=== PATIENT | male | born 1945 | race Caucasian/White ===

== ENCOUNTER → 2023-09-26 07:33 | Outpatient (REF) | payer MEDICARE, OTHER, SELFPAY | LOC: RCS 07:33 | PROVIDERS: ATTENDING PHYSICIAN Internal Medicine | DX: R09.89 Other specified symptoms and signs involving the circulatory and respiratory systems (principal); I35.0 Nonrheumatic aortic (valve) stenosis | CPT/HCPCS: 93005; 93306; 93880 ==

== ENCOUNTER → 2024-04-02 08:06 | Outpatient (REF) | payer MEDICARE, OTHER, SELFPAY | LOC: RCS 08:06 | PROVIDERS: ATTENDING PHYSICIAN Internal Medicine; FAMILY PHYSICIAN Internal Medicine | DX: I35.0 Nonrheumatic aortic (valve) stenosis (principal); I65.23 Occlusion and stenosis of bilateral carotid arteries; I10 Essential (primary) hypertension; I35.1 Nonrheumatic aortic (valve) insufficiency | CPT/HCPCS: 93306 ==

== ENCOUNTER 2024-05-03 07:29 | Day surgery (SDC) | payer MEDICARE, OTHER, SELFPAY ==
[2024-05-03] VITALS (11 sets, daily range): BP systolic 115–146; BP diastolic 56–71
[2024-05-03] MEDS: LOW STRENGTH ASPIRIN 81 MG PO (08:47)
[2024-05-03] MEDS: NSS 1000 IV (10:03)
--- NOTE | 2024-05-03 11:44 | PTCARENOTE ---
Valerie DEVINE at pt bedside speaking to pt about TAVR information.
--- NOTE | 2024-05-03 12:56 | CONSULT.STRU ---
Consultation
-
Date/Time Consultation Requested: 05/03/2024
Date/Time Consultation Performed: 05/03/2024
Requesting Provider: Dr. Irma Call
Performing Provider: NILSON Cruz
Reason for Consultation: Severe Aortic Stenosis/ TAVR evaluation
Patient History
Physicians
Family Physician: Nick Norman
Outpatient Physiology Teacher: Dr. Chowdary
Primary Physiology Teacher: Dr. Chowdary
History of Present Illness
Patient is a very pleasant 78yo male who underwent cardiac catheterization today as part of the evaluation of his severe aortic stenosis. He denies AVILA, palpitations, chest pain, orthopnea, PND or peripheral edema. He has noted increasing fatigue
that has gotten progressively more obvious over the last 18 months. He states he really tries to remain active and averages 10,000 steps a day. His echocardiogram on 04/02/2024 was notable for LVEF 60-65%, Severe with PG/M/52, MERNA: 0.9,
trace AI, trace MR, trace TR. Cardiac cath with non-occlusive CAD.
Reviewed the pathophysiology of aortic stenosis with the patient. Explained the treatment options of SAVR and TAVR. Explained the TAVR evaluation process including follow up BMP, CT TAVR scan, CT surgery consult and Heart Team discussion. Provided
with script for BMP next week, script and appointment for CT TAVR, Consult appointment with Dr. Yang and a copy of the TAVR education booklet with contact information. Allowed for and answered questions.
Past Medical History
Past Medical History: BPH, GERD (mild), HTN, Hypercholesterolemia, DEVIN (no CPAP), Psychiatric (PTSD-[place] Vet), Valvular Disease (mild MR, severe , trace AI, trace TR) and Other (arthritis, diverticulitis)
Past Surgical History
Past Surgical History: Other (hernia repair as a child, right rotator cuff repair, right shoulder replacement, Achilles tendon repair)
Dental History
Dentist has retired, not seen in >1 year
Family History
Mother: at Age (96yo)
Father: at Age (61yo, CVA/[place])
Social History
Alcohol: Occasional
Drug: None
Tobacco: Non-Smoker
Personal:
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
Employment: Retired (pharmacist)
Allergies
Allergy/AdvReac Type Severity Reaction Status Date / Time
carisoprodol [From Soma] Allergy Rash Verified 05/03/24 08:09
Home Medications
�Medication �Instructions �Recorded �Confirmed �Type
doxazosin 4 mg tablet 4 mg PO QPM 06/25/19 05/03/24 History
ibuprofen 600 mg tablet 600 mg PO Q6HPRN PRN pain 06/25/19 05/03/24 History
lorazepam 0.5 mg tablet 0.5 mg PO HS 06/25/19 05/03/24 History
magnesium 250 mg tablet 250 mg PO QPM 06/25/19 05/03/24 History
aspirin 81 mg tablet,delayed 81 mg PO QPM 05/03/24 05/03/24 History
release
losartan 100 mg tablet 100 mg PO QPM 05/03/24 05/03/24 History
metoprolol succinate 25 mg 25 mg PO QPM 05/03/24 05/03/24 History
tablet,extended release 24 hr
multivitamin 1 tab PO QPM 05/03/24 05/03/24 History
rosuvastatin 10 mg tablet 10 mg PO DAILY #90 tabs 05/03/24 Rx
STS%
STS %: 0.955%
Review of Systems
-
History Source: Patient
General: Reports Fatigue; Denies Weight Loss or Sleep Disturbance
HEENT: Reports No Symptoms
Respiratory: Reports No Symptoms; Denies PND
Cardiac: Reports No Symptoms; Denies Chest Pain, Palpitations or Edema
Abdomen/GI: Reports Reflux (Mild); Denies Abdominal Pain, Nausea, Vomiting or Diarrhea
: Reports Frequency (d/t BPH)
Musculoskeletal: Reports Joint Pain (arthritis)
Skin: Reports No Symptoms
Neurological: Reports No Symptoms; Denies CVA, TIA, Headaches or Syncope
Vascular: Reports No Symptoms
Physical Exam
Vital Signs
Temp 97.9 F 05/03/24 08:21
Temp route: Oral 05/03/24 08:20
Pulse 61 05/03/24 12:33
Blood pressure 116/70 05/03/24 12:34
Blood pressure extremity used: Left upper arm 05/03/24 09:51
Position: Sitting 05/03/24 09:51
MAP (cuff-Sharath Monitor) 85 05/03/24 12:34
SaO2 96 05/03/24 12:33
Oxygen Mode of Delivery Room air 05/03/24 12:00
Can the patient verbally communicate their pain? Yes 05/03/24 12:30
Labs
04/17/2024:
H/H: 14.6/42.2
WBC: 5.1
Platelets: [id number]
BUN/Creat: 13/0.82
GFR: 90
Diagnostic Studies
04/02/2024 Echocardiogram:
CONCLUSIONS
Normal biventricular size and systolic function without regional wall motion
abnormality. LVEF 60 to 65%.
Stage II diastolic dysfunction suggestive of abnormal relaxation and increased
filling pressures.
Severe aortic stenosis. Peak/mean gradient 86/52 mmHg, MERNA 0.9 cm2, DVI 0.24.
Estimated PASP 32 mmHg.
Compared to prior echocardiogram on 09/26/2023, aortic valve gradients are
slightly higher but MERNA and DVI are stable, suggesting that higher gradients
are in the setting of increased flow.
Indications:
Nonrheumatic aortic valve stenosis; Carotid atherosclerosis, bilateral; HTN
Rhythm: Sinus
Portable Study: No
Technical Quality: Fair
Contrast: None
BP: 150 / 72
PROCEDURE
A complete Transthoracic Echocardiogram was performed utilizing two-dimensional
evaluation with color flow and spectral Doppler analysis.
FINDINGS
Left Ventricle
Normal left ventricular size, wall thickness and systolic function. No regional
wall motion abnormalities are seen. LV ejection fraction is 60-65% by Coleman's
method of discs. Stage II diastolic dysfunction suggestive of abnormal
relaxation and increased filling pressures.
Right Ventricle
Normal right ventricular size and function.
Left Atrium
Mildly dilated left atrium.
Right Atrium
Normal right atrium.
Mitral Valve
Thickened mitral valve leaflets. Mitral annular calcification. Mild mitral
regurgitation.
Aortic Valve
Trileaflet, heavily calcified aortic valve. Severe aortic stenosis. The peak
gradient across the valve is 86 mmHg with a mean of 52 mmHg. Using a LVOT
diameter of 2.2 cm, the MERNA is 0.9 cm sq. DVI 0.24. Trace aortic regurgitation.
Tricuspid Valve
Tricuspid valve opens normally. Trace tricuspid regurgitation. Estimated
pulmonary artery pressure of 32 mmHg assuming a right atrial pressure of 3
mmHg.
Pulmonic Valve
Structurally normal pulmonic valve. Trace pulmonic regurgitation.
Pericardium\\Pleura
Normal pericardium without effusion.
Aorta
The aortic root is of normal size. Normal ascending aorta.
Other Finding
The IVC was not well visualized. Interatrial septum is intact with no evidence
of shunting by color flow Doppler.
MEASUREMENTS (Male / Female) Normal Values
2D ECHO
LV Diastolic Diameter PLAX 5.5 cm 4.2 - 5.9 / 3.9 - 5.3 cm
LV Systolic Diameter PLAX 3.5 cm
IVS Diastolic Thickness 1.0 cm 0.6 - 1.0 / 0.6 - 0.9 cm
LVPW Diastolic Thickness 1.0 cm 0.6 - 1.0 / 0.6 - 0.9 cm
LV Relative Wall Thickness 0.4
LVOT Diameter 2.2 cm
LV Ejection Fraction MOD BP 64.4 % >= 55 %
LV Stroke Volume MOD BP 67.0 cm3
LV Stroke Volume MOD 4C 80.0 cm3
LV Stroke Volume 4C AL 89.9 cm3
LV Stroke Volume MOD 2C 59.0 cm3
LV Stroke Volume 2C AL 64.1 cm3
LA Area 4C View 23.6 cm2 <= 20 cm2
LA Length 4C 5.8 cm
LA Volume 79.0 cm3 18 - 58 / 22 - 52 cm3
Ascending Aorta Diameter 3.7 cm
M-MODE
Aortic Root Diameter MM 3.9 cm
LA Systolic Diameter MM 4.6 cm
LA Ao Ratio MM 1.2
DOPPLER
AV Peak Velocity 463.0 cm/s
AV Peak Gradient 85.7 mmHg
AV Mean Gradient 52.0 mmHg
AV Velocity Time Integral 120.3 cm
LVOT Peak Velocity 107.0 cm/s
LVOT Peak Gradient 4.6 mmHg
LVOT Velocity Time Integral 28.9 cm
LVOT Stroke Volume 109.9 cm3
LVOT Stroke Volume Index 50.1 ml/m2 empty
AV Area Cont Eq vti 0.9 cm2
AV Area Cont Eq pk 0.9 cm2
Mitral E Point Velocity 85.9 cm/s
Mitral A Point Velocity 114.0 cm/s
Mitral E to A Ratio 0.8
LV E' Lateral Velocity 5.9 cm/s
Mitral E to LV E' Lateral Ratio 14.7
LV E' Septal Velocity 5.1 cm/s
Mitral E to LV E' Septal Ratio 16.9
TR Peak Velocity 254.0 cm/s
TR Peak Gradient 25.8 mmHg
Exam
General: Well Developed, Well Nourished, No Apparent Distress and Comfortable
HEENT: Normocephalic, Moist Mucous Membranes, PERRLA and EOMI
Neck: Trachea Midline
Respiratory: Clear; Negative Wheezes, Crackles, Rhonchi or Accessory Muscle Use
Cardiac: S1/S2, Regular Rhythm and Murmur (Grade III/ systolic murmur)
GI: Soft, Non Tender, Non Distended and Normal Bowel Sounds
Rectal: Deferred by Provider
Skin: Warm and Dry
Neuro: AO x 3, No Motor Deficits and Nonfocal/Grossly Intact
Extremities: Pulses (+2 palpable pedal pulses bilaterally); Negative Lower Level Edema
Lymph: No Lymphadenopathy
Psych: Calm
Assessment / Plan
-
Procedure Type:�Isolated AVR
PERIOPERATIVE OUTCOME ESTIMATE %
Operative Mortality 0.955%
Morbidity & Mortality 5.82%
Stroke 0.779%
Renal Failure 0.847%
Reoperation 3.14%
Prolonged Ventilation 2%
Deep Sternal Wound Infection 0.057%
Long Hospital Stay (>14 days) 1.94%
Short Hospital Stay (<6 days)* 60.2%
Assessment: Pleasant, relatively healthy and active 78yo male with severe, symptomatic aortic stenosis with progressive fatigue over the last 18 months.
Plan: Evaluate for TAVR vs SAVR
- follow up BMP on 05/09 or 05/10 at [facility]
- CT TAVR scan 05/17/2024 0930
- CT surgery consult with Dr. Yang 05/28/2024
- Dental clearance- has not seen dentist in > 1 year
- Heart team discussion
Data Reviewed
-
EKG: Report Reviewed by me (NSR, no conduction delays)
Formulation Technician: Discussed with Physician
Echo: Report Reviewed by me and Discussed with Physician
Labs: Labs Reviewed by me
Old Records: Reviewed (Cardiology consult notes)
Total Time Spent with Patient (in minutes): 25
--- NOTE | 2024-05-03 17:48 | ITS.CL.PN ---
Historiography Teacher - Procedure Note
Procedure
Procedure Note:
CARDIAC CATHETERIZATION REPORT
Date of Procedure: 05/03/2024
Referring: Dr. Chirag Chowdary MD, PhD
INDICATION: severe aortic stenosis
PROCEDURE: coronary angiography
ACCESS: 6 Citizen [place] right radial artery (TR band)
CATHETERS:
1. 6 [place] [id number]
2. 6 [place] JR4
CORONARY ANGIOGRAPHY
LM: normal, no disease
LAD: large vessel giving rise to two medium caliber diagonal branches. There are mild luminal irregularities.
LCx: large vessel giving rise to a single very large OM. There is a 20% stenosis at a proximal bend and otherwise trivial luminal irregularities.
RCA: large dominant vessel giving rise to a medium caliber RPDA and medium sized RPL system. There are trivial luminal irregularities.
RADIATION:
Radiation (mGy): 463
DAP (cm2.Gy): 34
Fluoroscopy time (minutes): 4.3
CONCLUSIONS
1. Non-obstructive coronary artery disease in a right dominant system.
RECOMMENDATIONS:
1. Expectant management after cardiac catheterization via right radial approach.
2. TAVR workup.
Copy to: Dr. Chirag Chowdary MD, PhD (cardiology); Dr. Nick Norman DO (PCP)
Signed: Zac Call MD, PhD
== END 2024-05-03 12:45 | disposition home or self-care (01) ==
LOC: CATH 07:29
PROVIDERS: ATTENDING PHYSICIAN Student in an Organized Health Care Education/Training Program; FAMILY PHYSICIAN Internal Medicine; OTHER PHYSICIAN Internal Medicine
DX: I35.0 Nonrheumatic aortic (valve) stenosis (principal); I25.10 Atherosclerotic heart disease of native coronary artery without angina pectoris; I10 Essential (primary) hypertension; E78.00 Pure hypercholesterolemia, unspecified; K21.9 Gastro-esophageal reflux disease without esophagitis; N40.0 Benign prostatic hyperplasia without lower urinary tract symptoms; G47.33 Obstructive sleep apnea (adult) (pediatric); Z82.3 Family history of stroke; Z79.82 Long term (current) use of aspirin
CPT/HCPCS: 93454; C1894; Q9967

== ENCOUNTER → 2024-05-17 09:12 | Outpatient (REF) | payer MEDICARE, OTHER, SELFPAY | LOC: RAD 09:12 | PROVIDERS: ATTENDING PHYSICIAN Nurse Practitioner Acute Care; FAMILY PHYSICIAN Internal Medicine | DX: I35.0 Nonrheumatic aortic (valve) stenosis (principal) | CPT/HCPCS: 74174; 75572; Q9967 ==

== ENCOUNTER 2024-06-27 06:24 | Inpatient (IN) | payer MEDICARE, OTHER, SELFPAY ==
[2024-06-18 08:21] VITALS: BMI 38.1
[2024-06-18 09:05] LABS: Urine Albumin Negative (Neg - Trace); Urine Bilirubin Negative (Negative); Urine Character Clear (Clear); Urine Color Yellow; Urine Glucose Negative (Negative); Urine Ketone Negative (Negative); Urine Leukocyte Negative (Negative); Urine Nitrite Negative (Negative); Urine Occult Blood Negative (Negative); Urine Urobilinogen Negative (Neg - 1+)
[2024-06-18 09:11] LABS: % Basophils 0.6 % (0-2); % Eosinophils 2.3 % (0-6); % Immature Granulocytes 0.2 % (0-0.5); % Lymphocytes 22.4 % (20.5-51.1); % Monocytes 8.3 % (1.7-9.3); % Neutrophils 66.2 % (42.2-75.2); Absolute Eosinophils 0.1 10^3/uL (0-0.7); Absolute Lymphocytes 1.2 10^3/uL (1.2-3.4); Absolute Monocytes 0.4 10^3/uL (0.1-0.6); Absolute Neutrophils 3.5 10^3/uL (1.4-6.5); Hematocrit 40.3 % (39.0-52.0); Mean Corp Hgb Conc. 34.7 g/dL (33.0-37.0); Mean Corpuscular Hgb 30.4 pg (27.0-31.0); Mean Corpuscular Volume 87.6 fL (80.0-94.0); Mean Platelet Volume 9.8 fL (7.4-10.4); Nucleated Red Blood Cells % 0 % (-); Platelet Count 144 10^3/uL (130-400); Red Cell Dist. Width 12.5 % (11.5-14.5); White Blood Cell Count 5.3 10^3/uL (4.8-10.8)
[2024-06-18 09:16] LABS: APTT 30.4 Sec (23.4-35.0); INR 0.91; PT 12.6 Sec (11.4-14.6)
[2024-06-18 09:25] LABS: ALT (SGPT) 30 U/L (0-50); AST (SGOT) 29 U/L (17-59); Albumin 4.2 g/dl (3.5-5.0); Alkaline Phosphatase 89 U/L (38-126); Blood Urea Nitrogen 16 mg/dl (9-20); Calcium 9.2 mg/dl (8.4-10.2); Carbon Dioxide 25 mmol/L (22-30); Chloride 105 mmol/L (98-107); Direct Bilirubin 0.1 mg/dl (0.0-0.4); Estimated Creatinine Clearance 96 ml/min; Glucose 111 mg/dl (70-99); Potassium 4.3 mmol/L (3.5-5.1); Sodium 139 mmol/L (135-145); Total Bilirubin 0.7 mg/dl (0.2-1.3); Total Protein 6.6 g/dl (6.3-8.2); eGFR > 60.00
--- NOTE | 2024-06-18 10:43 | CM ---
Chart reviewed. Met with the patient in PAT. Reviewed preoperative and postoperative instructions and restrictions, along with showering guidelines. Gave patient 2 soaps. Patient is agreeable to a home visit by CT Transitional RN. Patient is
independent of ADLS, lives alone but has a girlfriend who stays with him frequently, 2 STH, 2 SRAVANI, 0 DME. Plan is for the patient to return home with CT Transitional RN.
[2024-06-18 11:32] LABS: Glycohemoglobin (HgbA1c) 5.8 % (4.0-5.6)
[2024-06-27] VITALS (22 sets, daily range): BP systolic 98–162; BP diastolic 50–71; BMI 37.6
[2024-06-27] MEDS: ANCEF 10 IV (07:57)
[2024-06-27] MEDS: ANCEF 5 IV (07:57)
[2024-06-27 08:33] LABS: ACT-LR - POC 269 Seconds (116-155)
[2024-06-27 08:50] LABS: ACT-LR - POC 285 Seconds (116-155)
--- NOTE | 2024-06-27 09:32 | ITS.CL.PN ---
Commercial Correspondent - Procedure Note
Procedure
Procedure Note:
TRANSCATHETER AORTIC VALVE REPLACEMENT REPORT
Date of Procedure: 06/27/2024
Referring: Dr. Chirag Chowdary MD, PhD
Indication: severe symptomatic aortic stenosis
Operators: Zac Call MD, PhD (interventional cardiology); Vinay Yang MD (CT surgery)
Anesthesia: conscious sedation provided by the anesthesia staff
PROCEDURE: transfemoral, transcatheter aortic valve replacement with a 26 mm Bonifacio S3 Ultra
ACCESS:
1. 6F right femoral vein (closure: manual hemostasis)
2. 6F right common femoral artery (closure: Angioseal)
3. 14F left common femoral artery (closure: Perclose x2)
ULTRASOUND GUIDED VASCULAR ACCESS (right common femoral artery): Ultrasound was utilized for vascular access. The vessel was visualized under ultrasound and noted to be patent. An image of the vessel was stored permanently in the patient's medical
record. Under direct ultrasound guidance, vascular access was obtained using a modified Seldinger technique and a 6 Indonesian sheath was placed.
ULTRASOUND GUIDED VASCULAR ACCESS (right femoral vein): Ultrasound was utilized for vascular access. The vessel was visualized under ultrasound and noted to be patent. An image of the vessel was stored permanently in the patient's medical record.
Under direct ultrasound guidance, vascular access was obtained using a modified Seldinger technique and a 6 Indonesian sheath was placed.
ULTRASOUND GUIDED VASCULAR ACCESS (left common femoral artery): Ultrasound was utilized for vascular access. The vessel was visualized under ultrasound and noted to be patent. An image of the vessel was stored permanently in the patient's medical
record. Under direct ultrasound guidance, vascular access was obtained using a modified Seldinger technique and a 8 Indonesian sheath was placed.
HEMODYNAMIC DATA
LV 28 mmHg
PROCEDURE NARRATIVE:
The patient was prepped and draped in standard sterile fashion. Conscious sedation was provided by the anesthesia staff. 6F right femoral vein and right common femoral artery access was obtained with ultrasound guidance using micropuncture technique
with verification of appropriate arteriotomy location via hand injection angiography. A temporary venous pacing wire was advanced via the right femoral vein to the right ventricle under fluoroscopic guidance with appropriate capture verified. A 5F
pigtail catheter was advanced via the right common femoral artery and seated in the right coronary cusp. Angiography was performed to verify the co-planar angle.
8F left common femoral artery access was obtained with ultrasound guidance using micropuncture technique with verification of appropriate arteriotomy location via hand injection angiography. The arteriotomy was preclosed with two Perclose sutures
followed by replacement of the 8F sheath. Using an AL1 catheter, an Amplatz Superstiff wire was placed in the descending thoracic aorta. The 8F sheath was removed and the 14 F Morales E-sheath was inserted over the Superstiff wire and into the
descending aorta. Heparin 8500 units was given. The AL1 catheter was re-advanced through the E-sheath to the level of the ascending aorta. The Superstiff wire was exchanged for a soft tipped straight wire which was initially unable to cross the
aortic valve. Further attempts were made with a JR4 and AR-1 catheters, as well as with a Glidewire. Ultimately we returned to the AL-1 and straight wire and successfully crossed the valve and deposited the AL1 in the LV apex. LVEDP was measured.
An Amplatz Extrastiff wire with curved proximal end was advanced through the AL-1 catheter and seated in the LV apex. ACT was checked and confirmed to be >250 seconds.
The valve was brought to the table with orientation and deployment contrast volume verified. The valve was advanced over the Extrastiff wire and into the descending aorta. The balloon was withdrawn, and the valve was mounted on the balloon. The
valve was advanced over the aortic arch and into the aortic valve annulus. The pusher device was withdrawn. Low volume aortography confirmed valve positioning. The valve was deployed during rapid ventricular pacing. The balloon was walked back to
the descending aorta while leaving the wire in place. The patient was resuscitated by anesthesia with recovery of adequate blood pressure. Telemetry demonstrating some sinus bradycardia. Aortography demonstrated good valve positioning, adequate
coronary filling, and trace aortic valve insufficiency. Echocardiography confirmed trace aortic insufficiency. Mean valve gradient was 4 mmHg. The valve deployment system was removed.
The Morales E sheath was removed, and hemostasis obtained with the two Perclose sutures. Protamine 40 units was given. Aortoiliac angiography demonstrated no evidence of iliofemoral dissection/perforation and good runoff below the common femoral
artery bilaterally. The pacemaker and the pigtail catheter were removed. The right femoral artery sheath was removed using a 6F Angioseal. The right femoral venous sheath was removed with manual pressure.
RADIATION: dose 1919 mGy; DAP 171 Gy*cm2; fluoroscopy time 34.4 min
CONCLUSIONS
1. successful placement of a 26 mm BONIFACIO S3 ultra transcatheter aortic valve via left transfemoral approach with no acute complications
2. acute on chronic systolic heart failure with elevated filling pressures (LVEDP = 28)
Copy to: Dr. Chirag Chowdary MD, PhD (oral surgery assistant); Dr. Nick Norman DO (PCP)
Signed: Zac Call MD, PhD
--- NOTE | 2024-06-27 09:33 | W.CVOR.SURPR ---
CVOR Surgeon Immed Pre Op
-
I have examined this patient prior to performance of the scheduled procedure.
The patient's condition is unchanged from the time of the dictated/written History and
Physical and the patient is able to undergo the scheduled procedure.
--- NOTE | 2024-06-27 09:33 | W.IMMPOSTOP ---
Addendum entered and electronically signed by Vinay Yang MD 06/27/24 10:03:
[id number]
Original Note:
Surgical Immed Post Op Note
-
STRUCTURAL HEART PROCEDURE NOTE:
Preoperative Dx:
Severe aortic stenosis (P/M: 86/52, MERNA 0.9, Tire Technician: 4.63)
HTN/HLD
PTSD
GERD (mild)
OA
Postoperative Dx:
Same
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
Procedures:
1) R CFV access w/ U/S and fluoroscopic guidance, micropuncture technique, 6Fr sheath placement
2) R FRUIT HARVEST MACHINE OPERATOR access w/ tactile, U/S, and fluoroscopic guidance, micropuncture technique, limited angiography, 6Fr sheath placement
3) Placement of temporary RV pacing wire w/ threshold testing
4) Placement of pigtail catheter in RCC w/ limited aortography & confirmation of co-planar valve deployment angles
5) L FRUIT HARVEST MACHINE OPERATOR access w/ tactile, U/S, and fluoroscopic guidance, micropuncture technique, limited angiography, 6Fr sheath placement
6) Perclose placement x 2 into L FRUIT HARVEST MACHINE OPERATOR, 8Fr sheath placement
7) Placement of Morales E-sheath via L FRUIT HARVEST MACHINE OPERATOR access (systemic heparinization)
8) Wire purchase across stenotic AV (AL-1, soft-tip straight, JR-4, AR-1, AL-1/soft-tip straight, LVEDP assessment, extra-stiff)
9) L TF TAVR w/ placement of 26mm HELADIO 3 valve
10) Placement of pigtail catheter via Morales E-sheath
11) Completion aortography
11) Completion TTE (trace AI, mean gradient 6mmHg)
12) Placement of pigtail catheter via R FRUIT HARVEST MACHINE OPERATOR access & removal of temporary RV pacing wire
13) Removal of Morales E-sheath w/ L FRUIT HARVEST MACHINE OPERATOR mgmt w/ perclose x 2; manual pressure
14) Completion L ileofemoral angiography
15) Removal of R FRUIT HARVEST MACHINE OPERATOR sheath w/ mgmt w/ 6Fr angioseal; manual pressure
16) Removal of R CFV sheath w/ mgmt w/ manual pressure (protamine)
[employer] Assistant Manager:
Zac Call M.D.
Cardiac Surgeon:
Vinay Yang M.D.
Anesthesia:
MAC & local to B/L groins
Implants:
Perclose sutures x 2 to L FRUIT HARVEST MACHINE OPERATOR
6Fr angioseal x 1 to R FRUIT HARVEST MACHINE OPERATOR
Morales [employer]; HELADIO 3 valve; 26mm; SN [id number]
Cath Data:
Start: 0803hrs, Deploy: 06hrs, End: 926hrs
FT: 34.4min, mGy: 1919.75, DAP: 171.97, Contrast: 78mL
Post-TTE: trace AI, mean gradient 6mmHg
Complications:
None
Condition:
Stable/guarded to recovery
[2024-06-27] MEDS: ANCEF IV (10:08)
--- NOTE | 2024-06-27 11:34 | PTCARENOTE ---
Rec'd Pt 1045 A,A+OX3, denies pain. Bilat femoral dsg intact. L femoral dsg has small amt bloody drainage, marked.
--- NOTE | 2024-06-27 11:51 | W.DCSUMMARY ---
Discharge Summary
Discharge Data
Date of Admission: 06/27/24
Date of Discharge: 06/28/24
-
Pending Results: No
Hospital Course
Primary care physician: Nick Pereira
Outpatient resaw carriage operator: Igor Chowdary
Inpatient consultants: [facility] cardiology
Procedures:
1. TAVR-transfemoral
Primary Diagnosis:
1. Severe aortic stenosis
Secondary Diagnoses:
1. HTN
2. HLD
3. PTSD ([place] vet)
4. GERD (mild)
5. OA
6. Morbid obesity class II (BMI 37.6)
7. BPH
8. Erectile dysfunction
9. Postoperative bradycardia
HPI: 78-year-old male was electively admitted on 06/27/2024 for TAVR
Hospital course: Patient underwent left transfemoral TAVR (#26mm HELADIO 3 valve) by Drs. Vinay Yang and Justin Lua. Postprocedure ECG with bradycardia which was similar to preop ECG. Patient required no pressor support postprocedure.
Bilateral groin sites were intact without bleeding/hematoma. Patient experienced a bradycardic event while sleeping with heart rate in the 30s. ECG strip was reviewed with Dr. Chowdary and Coreg discontinued. Rhythm Star monitor ordered for
discharge. Predischarge TTE reported EF of 55 to 60% with AV gradients 27/17 mmHg and no AI. Bilateral groin sites intact without bleeding or hematoma. Patient deemed stable for discharge to home today.
Home medication changes:
Stop carvedilol
Discharge Plan
-
Patient Disposition: Home (Routine Discharge)
Discharge Diagnosis/Procedures: TF-TAVR
Condition: Good
Diet: Low Cholesterol and 2 Gram Sodium
Activity: As tolerated
Driving Restrictions: No driving for 1 week
Bathing Restrictions: OK to Shower
Others Tests: 30 Day Follow Up Echocardiogram: 07/25/2024 at 11:20am at [facility]
Other Services: Cardiac Rehab
Wound Care: Please do not apply lotions, creams or powders to groin areas. Please monitor for increased pain, swelling, edema or drainage. Call your doctor if any occur.
Specialty Instructions: Weigh Daily- Call MD for wt gain/loss 3 lbs overnight/5 lbs in 1 week
Referrals:
CT Transitional Care Nurse [Outside] (The Cardiothoracic Transitional Care Nurse will call you to set up a visit in 1-2 days.)
[facility] [Outside] - 07/29/24 9:30 am
(Cardiac Rehab Orientation and� First Exercise appointment is on 07/29/24 at 9:30 AM.
The Cardiac Rehab gym is located on the first floor of the [facility]ovascular [facility].)
Maria Ines Zamudio CRNP [Specified Professional Personl] - 08/01/24 10:00 am
Nick Norman DO [Family Provider] -
Prescriptions:
Continued
ibuprofen 600 MG tablet
600 mg PO Q6HPRN PRN (Reason: pain)
multivitamin Tablet
1 tab PO QPM
sildenafil [Viagra] 50 mg Tablet
50 mg PO DAILY PRN (Reason: ED)
aspirin 81 mg Tablet,Delayed Release (Dr/Ec)
81 mg PO QPM Qty: 0 0RF
magnesium 250 MG tablet
250 mg PO QPM Qty: 0 0RF
rosuvastatin 10 mg tablet
10 mg PO DAILY Qty: 90 5RF
lorazepam 0.5 MG tablet
0.5 mg PO HS Qty: 0 0RF
doxazosin 4 MG tablet
4 mg PO QPM Qty: 0 0RF
losartan 100 mg Tablet
100 mg PO QPM Qty: 0 0RF
Discontinued
carvedilol [Coreg] 6.25 mg Tablet
6.25 mg PO BID
Discharge Orders:
Discharge Patient (As Directed); Ordered 06/28/24
Ordered By: Kelin Tucker
Care Plan Goals
Care Plan Goals:
Problem: Readiness for enhanced knowledge related to diagnosis and treatment plan
Goal: Understand your diagnosis and treatment plan needs, including medications if applicable.
Instructions: Know your diagnosis, underlying causes and treatment plan options, including medications if applicable. Consult with your health care team to learn about your diagnosis and treatment plan, including medications if applicable.
Discharge Date and Time
Print Language: SERBIAN
--- NOTE | 2024-06-27 12:29 | CM ---
Chart reviewed. Patient is in the OR today. Patient is independent of ADLS, lives with his girlfriend in a 2 STH, 2 SRAVANI, 0 DME. Plan is for the patient to return home with CT Transitional RN. CM to follow
--- NOTE | 2024-06-27 14:35 | PTCARENOTE ---
Pt assisted OOB to BR, colton well, denies pain ,no lightheadedness or SOB. Neuro checks WNL.
[2024-06-27] MEDS: ASPIR LOW (ENTERIC COATED) 81 MG PO (18:19)
[2024-06-27] MEDS: CARDURA 4 MG PO (18:19)
[2024-06-27] MEDS: MAG-TAB SR 84 MG PO (19:12)
[2024-06-27] MEDS: COZAAR 100 MG PO (19:13)
[2024-06-27] MEDS: COREG 6.25 MG PO (21:16)
[2024-06-27 21:54] LABS: Estimated Creatinine Clearance 84 ml/min; Magnesium 2.3 mg/dl (1.6-2.3); Potassium 3.9 mmol/L (3.5-5.1)
[2024-06-27] MEDS: ATIVAN 0.5 MG PO (22:42)
[2024-06-27] MEDS: KCL 20 MEQ PO (22:48)
[2024-06-28] VITALS (7 sets, daily range): BP systolic 109–155; BP diastolic 49–115; PULSE 79; O2SAT 94–96; BMI 37.6
--- NOTE | 2024-06-28 01:00 | PTCARENOTE ---
Pt received at change of shift. NSR with PVCs on tele with HR 60s-80s. Stat labs collected per orders. B/L groin sites from TAVR c/d/i with no complications noted. Pt with no complaints at this time. Ambulating independently in room without
difficulty. Can make needs known. Call felix within reach.
[2024-06-28 03:54] LABS: Hematocrit 36.1 % (39.0-52.0); Hemoglobin 12.5 g/dL (13.0-18.0); Mean Corp Hgb Conc. 34.6 g/dL (33.0-37.0); Mean Corpuscular Hgb 30.3 pg (27.0-31.0); Mean Corpuscular Volume 87.6 fL (80.0-94.0); Mean Platelet Volume 9.6 fL (7.4-10.4); Platelet Count 115 10^3/uL (130-400); Red Blood Cell Count 4.12 10^6/uL (4.70-6.10); Red Cell Dist. Width 12.5 % (11.5-14.5); White Blood Cell Count 7.4 10^3/uL (4.8-10.8)
[2024-06-28 04:21] LABS: Blood Urea Nitrogen 22 mg/dl (9-20); Calcium 8.8 mg/dl (8.4-10.2); Carbon Dioxide 24 mmol/L (22-30); Chloride 105 mmol/L (98-107); Estimated Creatinine Clearance 84 ml/min; Glucose 104 mg/dl (70-99); Potassium 4.1 mmol/L (3.5-5.1); Sodium 137 mmol/L (135-145); eGFR > 60.00
--- NOTE | 2024-06-28 06:01 | W.PN.CT ---
Today's Communication / Plan
-
-pod #1
-no issues overnight
-nsr 50s-60s, occasional PVCs overnight (hr 50s preop also). No significant pauses
-1st degree AVB postop. ECG am appears at baseline
-gave 20 KCL last night
-Echo today
-current meds (ASA, Crestor, Cardura, Coreg, Cozaar, Mg, Ativan)
-encourage IS, ambulate
-possible d/c
Assessment / Plan
-
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
- Post-TTE: trace AI, mean gradient 6mmHg
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
- HTN/HLD
- Class 2 obesity (BMI 37)
- PTSD ([place] )
- GERD (mild)
- OA- s/p R shoulder replacement
- BPH
- DEVIN
- Nonsmoker
- 1st degree AVB
Discussed patient care with: Nursing and Care Team
Subjective
-
Date of Service: June 28, 2024
Objective Data
-
PT 12.6 Sec (11.4-14.6) 06/18/24 08:32
INR 0.91 06/18/24 08:32
APTT 30.4 Sec (23.4-35.0) 06/18/24 08:32
Vital Signs
Vital Signs
Temp Pulse Resp BP Pulse Ox
98.3 F 86 18 128/61 94
06/27/24 22:44 06/27/24 22:45 06/27/24 22:44 06/27/24 22:45 06/27/24 22:44
CT Intake/Output/Weight
06/27/24 06/27/24 06/28/24
06:59 18:59 06:59
Intake Total 1600 / 1600
Output Total 575 / 575
Balance 1025 / 1025
SaO2: 94
Physical Exam
-
General: Awake and AOx3
Cardiovascular: Regular rate & rhythm, No Murmurs and No Rub
Respiratory: Clear
Incision: Other (groins are cdi, soft, nontender, no hematoma b/l)
Extremities: No Edema (DP and PT 2+ b/l)
Abdomen: soft, nontender, nondistended, + bowel sounds
Data Reviewed
-
Lab Results: Results Reviewed
Medications: Active Meds Reviewed
Chest X-Ray: Report Reviewed and Image Reviewed
ECG: Report Reviewed and Image Reviewed
--- NOTE | 2024-06-28 07:23 | PTCARENOTE ---
Pt alarmed HR of 25 on tele, pt sustained HR 25-30 for ~20-30 seconds. Pt woken from sleep and HR back up into the 60s. Pt stated he felt fine and had no dizziness when the episode happened. BP stable. ROCIO Pryor notified.
--- NOTE | 2024-06-28 08:07 | W.PN.ANS.POP ---
Anesthesia Post Operative
- Anesthesia Post Op Note
Vital Signs Stable-See Nursing Note: Yes
Airway Patent: Yes
Adequate Pain Control: Yes
Change in Mental Status: No
Current Postoperative Nausea & Vomiting: No
Anesthesia Complications: No
General Anesthetic Recall: No
Unplanned Admission: No
Post Op Hydration Adequate: Yes
- -
Pt awake and alert, no anesthesia c/o at time of post op visit.
--- NOTE | 2024-06-28 08:36 | W.PN.CD ---
Today's Communication / Plan
-
echo
stop coreg
monitor on discharge
discharge planning
Impression / Plan
-
78 yo male with PMH of severe , HTN admitted s/p TAVR.
# s/p TAVR
-echo today
-ASA 81mg daily
# Rhythm
-sinus bradycardia overnight while sleeping, 3 seconds pauses
-stop coreg
-monitor on discharge
-outpatient DEVIN eval: plans to do this at [facility]
# HTN
-coreg stopped for bradycardia
-did not tolerate amlodipine in past
-continue losartan 100mg daily, cardura 4mg daily (also for BPH)
-will titrate cardura if BP trends up as outpatient
# Hyperlipidemia
-continue crestor
Physical Exam
Vital Signs/Labs
Vital Signs
Temp Pulse Resp BP Pulse Ox
98.1 F 76 20 109/49 95
06/28/24 08:27 06/28/24 08:27 06/28/24 08:27 06/28/24 03:17 06/28/24 08:27
06/27/24 06/28/24 06/29/24
06:59 06:59 06:59
Actual Weight 100.9 kg 100.8 kg
06/28/24 03:33
06/28/24 03:33
PT 12.6 Sec (11.4-14.6) 06/18/24 08:32
INR 0.91 06/18/24 08:32
APTT 30.4 Sec (23.4-35.0) 06/18/24 08:32
Magnesium 2.3 mg/dl (1.6-2.3) 06/27/24 21:15
Physical Exam
Constitutional: No acute distress and Comfortable
EENT: Moist mucous membranes
Cardiovascular: Rhythm & rate is regular, Pedal edema is absent, JVD pressure is normal and Systolic murmur absent
Respiratory: Respiratory effort normal and Lungs clear to auscul.
Neuro/Psych: AO x 3
Data Reviewed
-
Date of Service: June 28, 2024
EKG: Other (Tele: SR/SB, 3 second pauses)
Labs: Labs Reviewed by me
[2024-06-28] MEDS: COREG PO (08:52)
[2024-06-28] MEDS: CRESTOR 10 MG PO (08:52)
[2024-06-28 10:15] LABS: ACT-LR - POC > 397 Seconds (116-155)
--- NOTE | 2024-06-28 11:07 | CM ---
Chart reviewed. 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 Patient's girlfriend will be staying with him through the weekend and then he will be staying at his daughters house in
[place] Monday and Monday, return home on Monday. Plan is for the patient to return home with [facility] Transitional RN. CM to follow
--- NOTE | 2024-06-28 12:07 | PTCARENOTE ---
d/c instructions read to pt and pt verbalized understanding. iv and tele removed. pt left w/ belongings from room, d/c instructions and heart monitor. pt left via wheel chair w/ staff member.
--- NOTE | 2024-06-28 12:53 | W.PN.UPDATE ---
Update Note
Progress Note Update
Dr. Chowdary requests R[employer] Star monitor to be placed at discharge. Monitor given to patient. Reviewed with patient how to apply, charge, report symptoms and return the device after 14 days. Allowed for and answered questions. Patient verbalized
understanding.
== END 2024-06-28 13:06 | disposition home or self-care (01) | DRG 266 ==
LOC: IVU 06:24
PROVIDERS: Nurse Practitioner; Physician Assistant Medical; ADMITTING PHYSICIAN Thoracic Surgery (Cardiothoracic Vascular Surgery); FAMILY PHYSICIAN Internal Medicine
PROC: 02RF38Z Replacement of Aortic Valve with Zooplastic Tissue, Percutaneous Approach (ICD-10-PCS; 2024-06-27)
DX: I35.0 Nonrheumatic aortic (valve) stenosis (principal); Z00.6 Encounter for examination for normal comparison and control in clinical research program; I50.43 Acute on chronic combined systolic (congestive) and diastolic (congestive) heart failure; E78.5 Hyperlipidemia, unspecified; F43.10 Post-traumatic stress disorder, unspecified; K21.9 Gastro-esophageal reflux disease without esophagitis; I11.0 Hypertensive heart disease with heart failure; M19.90 Unspecified osteoarthritis, unspecified site; E66.812 Obesity, class 2; E66.01 Morbid (severe) obesity due to excess calories; N40.0 Benign prostatic hyperplasia without lower urinary tract symptoms; N52.9 Male erectile dysfunction, unspecified; R00.1 Bradycardia, unspecified; G47.33 Obstructive sleep apnea (adult) (pediatric); Z68.37 Body mass index [BMI] 37.0-37.9, adult; Z79.82 Long term (current) use of aspirin; Z79.899 Other long term (current) drug therapy
CPT/HCPCS: 93308; 33361; 36415; 71045; 71046; 80048; 80053; 81003; 82248; 82565; 83036; 83735; 84132; 85025; 85027; 85347; 85610; 85730; 86850; 86900; 86901; 87070; 93005; 93306; 93321; 93325; C1760; C1769; C1894; Q9967

== ENCOUNTER → 2024-07-25 11:02 | Outpatient (REF) | payer MEDICARE, OTHER, SELFPAY | LOC: RCS 11:02 | PROVIDERS: ATTENDING PHYSICIAN Student in an Organized Health Care Education/Training Program; FAMILY PHYSICIAN Internal Medicine | DX: Z95.2 Presence of prosthetic heart valve (principal); I10 Essential (primary) hypertension; I35.0 Nonrheumatic aortic (valve) stenosis; I65.23 Occlusion and stenosis of bilateral carotid arteries; R09.89 Other specified symptoms and signs involving the circulatory and respiratory systems; E78.2 Mixed hyperlipidemia | CPT/HCPCS: 93306 ==

== ENCOUNTER 2024-08-19 09:05 | Outpatient (RCR) | payer MEDICARE, OTHER, SELFPAY | END 2024-08-19 23:59 | disposition home or self-care (01) | LOC: CRHB 09:05 | PROVIDERS: ATTENDING PHYSICIAN Internal Medicine | DX: Z95.4 Presence of other heart-valve replacement (principal) | CPT/HCPCS: G0422; G0423 ==

== ENCOUNTER 2024-09-18 08:56 | Outpatient (RCR) | payer MEDICARE, OTHER, SELFPAY | END 2024-09-18 23:59 | disposition home or self-care (01) | LOC: CRHB 08:56 | PROVIDERS: ATTENDING PHYSICIAN Internal Medicine; FAMILY PHYSICIAN Internal Medicine | DX: Z95.4 Presence of other heart-valve replacement (principal) | CPT/HCPCS: G0422; G0423 ==

== ENCOUNTER 2024-10-18 09:30 | Outpatient (RCR) | payer MEDICARE, OTHER, SELFPAY ==
[2024-10-02 11:35] LABS: HDL Cholesterol 39 mg/dl; LDL Cholesterol, Calculated 82 mg/dl; Total Cholesterol 144 mg/dl (50-199); Triglyceride 118 mg/dl (10-149); Very Low Density Lipoprotein 23 mg/dl (0-30)
== END 2024-10-18 09:35 | disposition home or self-care (01) ==
LOC: CRHB 09:30
PROVIDERS: ATTENDING PHYSICIAN Internal Medicine; FAMILY PHYSICIAN Internal Medicine
DX: Z95.4 Presence of other heart-valve replacement (principal)
CPT/HCPCS: 80061; G0422; G0423